=== PATIENT | male | born 1950 | race Caucasian/White ===

== ENCOUNTER 2017-04-25 18:08 | Inpatient (IN) | payer OTHER ==
[~2017-04-25] VITALS: Ht 182.9 cm; Wt 93.0 kg
[~2017-04-25 18:08] MED LIST: ASPI-524 PO
[2017-04-25 18:19] VITALS: BP_SYST 130
[2017-04-25] MEDS ORDERED: NACL 0.9% 1,000 ML IV ONE (20:00)
[2017-04-25] MEDS ORDERED: ONDANSETRON HCL 4 MG/2 ML VIAL IVP ONE (20:00)
[2017-04-25] MEDS ORDERED: MORPHINE 2 MG/ML INJ. SYRINGE IVP ONE ×2 (20:00→22:00)
[2017-04-25 20:32] LABS: HEMATOCRIT 39.7 % (36-54); HEMOGLOBIN 13.6 g/dL (14.0-18.0); MEAN CORPUSCULAR HEMOGLOBIN 30 pg (27-31); MEAN CORPUSCULAR HGB CONC 34 % (32-36); MEAN CORPUSCULAR VOLUME 88 fL (79.0-98.0); PLATELET COUNT (AUTO) 221 K/uL (130-430); WHITE BLOOD COUNT (AUTO) 17.4 K/uL (4.8-10.8)
[2017-04-25 20:47] LABS: INR 1.1 (0.80-1.20); PROTHROMBIN TIME 11.6 SECS (9.5-12.5)
[2017-04-25 20:50] LABS: CALCIUM 8.7 mg/dL (8.4-11.0); CREATININE 1.37 mg/dL (0.55-1.30); POTASSIUM 4.1 mmol/L (3.5-5.1)
[2017-04-25 20:54] LABS: TOTAL PROTEIN, SERUM 7.6 g/dL (6.4-8.3)
[2017-04-25 21:08] LABS: ATYPICAL LYMPHOCYTES % 2 % (0-0); BAND % (MANUAL) 16 % (0-6); BASOPHILS % (MANUAL) 0 % (0-2); EOSINOPHILS % (MANUAL) 0 % (0-7); LYMPHOCYTES % (MANUAL) 13 % (20-46); MONOCYTES % (MANUAL) 5 % (0-11)
[2017-04-25] MEDS ORDERED: METF1000 PO (21:56)
[2017-04-25] MEDS ORDERED: ATOR20TA64 PO (21:56)
[2017-04-25] MEDS ORDERED: IRBE150T26 PO (21:57)
[2017-04-25] MEDS ORDERED: DILT120C89 PO (21:57)
[2017-04-25] MEDS ORDERED: INSU100V9 SUBCUT (21:58)
[2017-04-25] MEDS ORDERED: metroNIDAZOLE 500 mg/NS 100 ML IV ONE (22:00)
[2017-04-25] MEDS ORDERED: cefTRIAXone 1 GM VIAL IM ONE (22:00)
[2017-04-25] MEDS ORDERED: cefTRIAXone 1 GM IVPB PREMIX 50 ML IV ONE (22:30)
[2017-04-25] MEDS ORDERED: ONDANSETRON HCL 4 MG/2 ML VIAL IVP PRN (22:45)
[2017-04-25] MEDS ORDERED: ENALAPRILAT DIHYDRATE 1.25 MG/ML VIAL IVP PRN (22:45)
[2017-04-25] MEDS ORDERED: D5/0.45 NS 1,000 ML IV ONE (22:45)
[2017-04-25] MEDS ORDERED: MORPHINE 2 MG/ML INJ. SYRINGE IVP PRN (22:45)
[2017-04-26] VITALS (7 sets, daily range): BP systolic 117–136
[2017-04-26] MEDS: D5/0.45 NS 1,000 ML IV SCH ×3 (00:43→14:45)
[2017-04-26] MEDS ORDERED: PIPERACILLIN/TAZOBACTAM 3.375 GM/VIAL (ZOSYN) IV ONE ×2 (04:57→21:37)
[2017-04-26] MEDS: PIPERACILLIN/TAZO 3.375/DEX-IS 50 ML IV SCH ×3 (06:00→21:51)
[2017-04-26] MEDS ORDERED: PIPERACILLIN/TAZO 3.375 GM in NS 50 ML IV ONE (06:00)
[2017-04-26] MEDS: INSULIN REGULAR, HUMAN 100 UNITS/ML, 10 ML VIAL (novoLIN R) SUBCUT PRN ×2 (06:07→21:02)
[2017-04-26 07:12] LABS: BASOPHILS % (AUTO) 0.3 % (0.0-2.0); EOSINOPHILS # (AUTO) 0.1 K/uL (0.0-0.4); EOSINOPHILS % (AUTO) 0.6 % (0.0-4.0); HEMATOCRIT 37.2 % (36-54); HEMOGLOBIN 12.8 g/dL (14.0-18.0); LYMPHOCYTES # (AUTO) 1.5 K/uL (1.0-5.5); MEAN CORPUSCULAR HEMOGLOBIN 31 pg (27-31); MEAN CORPUSCULAR HGB CONC 35 % (32-36); MEAN CORPUSCULAR VOLUME 90 fL (79.0-98.0); MONOCYTES # (AUTO) 1.1 K/uL (0.0-1.0); MONOCYTES % (AUTO) 9.9 % (1.7-9.3); NEUTROPHILS # (AUTO) 8.7 K/uL (1.8-7.7); NEUTROPHILS % (AUTO) 76.2 % (40.0-70.0); PLATELET COUNT (AUTO) 196 K/uL (130-430); RED BLOOD CELL COUNT(AUTO) 4.15 MIL/uL (4.2-6.2); RED CELL DISTRIBUTION WIDTH 12.1 % (9.0-15.0)
[2017-04-26 07:20] LABS: WHITE BLOOD COUNT (AUTO) 11.4 K/uL (4.8-10.8)
[2017-04-26 07:38] LABS: ALBUMIN 3.5 g/dL (3.4-4.8); CALCIUM 8.4 mg/dL (8.4-11.0); CREATININE 1.29 mg/dL (0.55-1.30); TOTAL PROTEIN, SERUM 7.4 g/dL (6.4-8.3)
[2017-04-26] MEDS: IPRATROPIUM/ALBUTEROL SULFATE 3 ML AMPUL.NEB INH SCH ×4 (11:13→23:00)
[2017-04-26] MEDS ORDERED: LR 1,000 ML IV.SOLN IV ONE (12:25)
[2017-04-26] MEDS ORDERED: BUPIVACAINE /EPINEPHRINE/PF 0.5% 30 ML VIAL INJ ONE (12:25)
[2017-04-26] MEDS ORDERED: PROPOFOL 200MG/ 20ML VIAL (DIPRIVAN) IV ONE (12:25)
[2017-04-26] MEDS ORDERED: GLYCOPYRROLATE 0.2 MG/ML VIAL IJ ONE (12:25)
[2017-04-26] MEDS ORDERED: NS IRRIG SOLN 1000 ML IR ONE (12:25)
[2017-04-26] MEDS ORDERED: fentaNYL CITRATE 250 MCG/5 ML AMP IV ONE (12:25)
[2017-04-26] MEDS ORDERED: ROCURONIUM BROMIDE 10 MG/ML (ZEMURON) IV ONE (12:25)
[2017-04-26] MEDS ORDERED: SEVOFLURANE 15 MIN GAS INH ONE (12:25)
[2017-04-26] MEDS ORDERED: MIDAZOLAM HCL 5 MG/5 ML VIAL IVP ONE (12:25)
[2017-04-26] MEDS ORDERED: NEOSTIGMINE METHYLSULFATE 1 MG/ML, 10 ML VIAL IVP ONE (12:25)
[2017-04-26] MEDS ORDERED: ONDANSETRON HCL 4 MG/2 ML VIAL IVP ONE (12:25)
[2017-04-26] MEDS ORDERED: LR 1,000 ML IV SCH (13:21)
[2017-04-26] MEDS ORDERED: MORPHINE 2 MG/ML INJ. SYRINGE IVP PRN ×3 (13:30)
[2017-04-26] MEDS ORDERED: METOCLOPRAMIDE HCL 10 MG/2 ML VIAL IVP PRN (13:30)
[2017-04-27] VITALS: BP_SYST 149
[2017-04-27] MEDS: IPRATROPIUM/ALBUTEROL SULFATE 3 ML AMPUL.NEB INH SCH ×3 (03:00→11:34)
[2017-04-27 04:00] VITALS: BP_SYST 145
[2017-04-27] MEDS: D5/0.45 NS 1,000 ML IV SCH (05:20)
[2017-04-27] MEDS: PIPERACILLIN/TAZO 3.375/DEX-IS 50 ML IV SCH (05:20)
[2017-04-27] MEDS: INSULIN REGULAR, HUMAN 100 UNITS/ML, 10 ML VIAL (novoLIN R) SUBCUT PRN ×2 (06:20→11:45)
[2017-04-27] MEDS: HYDROcodone/ACETAMIN 5-325 MG TAB (NORCO/ VICODIN) PO PRN ×2 (07:39→13:21)
[2017-04-27 08:00] VITALS: BP_SYST 160
[2017-04-27 12:02] VITALS: BP_SYST 137
[2017-04-27 13:24] VITALS: BP_SYST 132
== END 2017-04-27 13:50 | disposition home or self-care (01) | DRG 341 ==
LOC: OBSVTOIN → SED 18:08 → SMU 22:41 → INTOOBSV 22:41 → SMU 23:54
PROVIDERS: ATTEND Internal Medicine Hospice and Palliative Medicine
PROC: 0WQF0ZZ Repair Abdominal Wall, Open Approach (ICD-10-PCS; 2017-04-26)
PROC: 0DTJ4ZZ Resection of Appendix, Percutaneous Endoscopic Approach (ICD-10-PCS; principal; 2017-04-26 12:00)
DX: K40.20 Bilateral inguinal hernia, without obstruction or gangrene, not specified as recurrent (principal); K35.3 Acute appendicitis with localized peritonitis; N17.0 Acute kidney failure with tubular necrosis; I10 Essential (primary) hypertension; F17.200 Nicotine dependence, unspecified, uncomplicated; E11.9 Type 2 diabetes mellitus without complications; E78.00 Pure hypercholesterolemia, unspecified; M54.30 Sciatica, unspecified side; Z79.899 Other long term (current) drug therapy; Z90.49 Acquired absence of other specified parts of digestive tract; Z79.82 Long term (current) use of aspirin; Z79.4 Long term (current) use of insulin
CPT/HCPCS: 36415; 71010; 80053; 82962; 83605; 84484; 85007; 85025; 85027; 85610-TC; 85730-TC; 87040-TC; 87081; 88302; 88304; 93005; 94640; 96361; 96365; 96375; 96376; 99285; C1727; C1782; J0696; J1815; J2250; J2270; J2405; J2543; J2704; J2710; J3010; J3490; J7030; J7060; J7120